=== PATIENT | female | born 1935 | race Caucasian/White ===

== ENCOUNTER 2018-11-28 17:45 | Emergency (ER) | payer MEDICARE, OTHER ==
[~2018-11-28] VITALS: Ht 167.6 cm; Wt 63.5 kg
[2018-11-28] MEDS ORDERED: CARB1TAB19 (18:06)
[2018-11-28] MEDS ORDERED: FLUO20TA28 (18:06)
[2018-11-28] MEDS ORDERED: AMLO-65 (18:06)
[2018-11-28] MEDS ORDERED: LAMO150T2 (18:06)
[2018-11-28 18:07] LABS: COLOR,URINE YELLOW
[2018-11-28 18:08] LABS: BILIRUBIN,URINE NEGATIVE (NEGATIVE); CLARITY,URINE CLEAR; GLUCOSE, URINE (UA) NEGATIVE (NEGATIVE); KETONES,URINE TRACE (NEGATIVE); LEUKOCYTE ESTERASE ,URINE NEGATIVE (NEGATIVE); NITRITE,URINE NEGATIVE (NEGATIVE); PROTEIN,URINE NEGATIVE (NEGATIVE); UROBILINOGEN,URINE 0.2 MG/DL (NORMAL)
[2018-11-28 18:11] LABS: BACTERIA,URINE TRACE /HPF; WBC,URINE 0-2 /HPF
[2018-11-28] MEDS ORDERED: NS IV 500 ML 500 ML IV SCH (18:15)
--- NOTE | 2018-11-28 18:19 | ED General ---
General Chief Complaint: Back Problems Stated Complaint: RT SIDE/BACK PAIN Source of Information: Patient History of Present Illness Date Seen by Provider: Nov 28, 2018 Time Seen by Provider: 18:00 Initial Comments Patient is an 82-year-old female who is brought to the emergency department today by her son for evaluation of abdominal pain. Patient states she has been having pain in the right lower quadrant intermittently over the last 2 weeks. She could not identify any aggravating or alleviating factors. Pain is not worse with food or eating. Pain was intermittent and moderate at times. She comes to the ER today because the pain became more constant over the last 2 days and more severe. She has continued to be able to tolerate food. No fever. Denies urinary symptoms. The patient does give a chronic history of constipation for which she does take a bowel regimen at home but states she continues to have difficulties frequently. Denies prior history of similar symptoms. Her only surgical history is positive for cholecystectomy 5 years earlier. Allergies and Home Medications Allergies Coded Allergies: Sulfa (Sulfonamide Antibiotics) (Unverified Adverse Reaction, Unknown, 11/28/18) Home Medications Docusate Sodium 100 Mg Tablet, 100 MG PO UD Take 1 capsule twice daily over the next week. After that, take one capsule either once daily or twice daily as needed for constipation symptoms. Prescribed by: HAN FLORES on 11/28/181944 Polyethylene Glycol 3350 17 Gm Powd.pack, 17 GM PO UD Take 1 or 2 doses daily over the next several days or until you have loose bowel movements. After that, take one dose daily as needed for constipation. Prescribed by: HAN FLORES on 11/28/181944 Patient Home Medication List Home Medication List Reviewed: Yes Review of Systems Review of Systems Constitutional: no symptoms reported EENTM: no symptoms reported Respiratory: no symptoms reported Cardiovascular: no symptoms reported Gastrointestinal: see HPI Genitourinary: no symptoms reported Musculoskeletal: no symptoms reported Skin: no symptoms reported Psychiatric/Neurological: No Symptoms Reported Hematologic/Lymphatic: No Symptoms Reported Physical Exam Vital Signs Vital Signs - First Documented 11/28/18 17:50 Temp 97.8 Pulse 86 Resp 18 B/P (MAP) 147/64 (91) Pulse Ox 93 O2 Delivery Room Air Capillary Refill : Height, Weight, BMI Height: '" Weight: lbs. oz. kg; BMI Method: General Appearance: No Apparent Distress, WD/WN HEENT: PERRL/EOMI, Normal ENT Inspection Neck: Normal Inspection Respiratory: Chest Non Tender, Lungs Clear Cardiovascular: Regular Rate, Rhythm, No Murmur Gastrointestinal: Normal Bowel Sounds, No Organomegaly, Soft, Other (subjectively tender to palpate in the right lower quadrant only but no guarding or rebound. Non-peritoneal abdominal exam) Back: Normal Inspection Extremity: Normal Capillary Refill Neurologic/Psychiatric: Alert, Oriented x3 Progress/Results/Core Measures Suspected Sepsis SIRS Temperature: Pulse: Respiratory Rate: Laboratory Tests 11/28/18 18:15: White Blood Count 6.7 Blood Pressure / Mean: Laboratory Tests 11/28/18 18:15: Creatinine 0.99, Platelet Count 235, Total Bilirubin 0.2 Results/Orders Lab Results Laboratory Tests Test 11/28/18 17:50 11/28/18 18:15 Range/Units Urine Color YELLOW Urine Clarity CLEAR Urine pH 6.0 5-9 Urine Specific [place] 1.020 1.016-1.022 Urine Protein NEGATIVE NEGATIVE Urine Glucose (UA) NEGATIVE NEGATIVE Urine Ketones TRACE H NEGATIVE Urine Nitrite NEGATIVE NEGATIVE Urine Bilirubin NEGATIVE NEGATIVE Urine Urobilinogen 0.2 NORMAL MG/DL Urine Leukocyte Esterase NEGATIVE NEGATIVE Urine RBC (Auto) NEGATIVE NEGATIVE Urine RBC NONE /HPF Urine WBC 0-2 /HPF Urine Squamous Epithelial Cells 2-5 /HPF Urine Crystals NONE /LPF Urine Bacteria TRACE /HPF Urine Casts NONE /LPF Urine Mucus NEGATIVE /LPF Urine Culture Indicated NO White Blood Count 6.7 4.3-11.0 10^3/uL Red Blood Count 3.70 L 4.35-5.85 10^6/uL Hemoglobin 12.3 11.5-16.0 G/DL Hematocrit 37 35-52 % Mean Corpuscular Volume 99 80-99 FL Mean Corpuscular Hemoglobin 33 25-34 PG Mean Corpuscular Hemoglobin Concent 34 32-36 G/DL Red Cell Distribution Width 13.6 10.0-14.5 % Platelet Count 235 130-400 10^3/uL Mean Platelet Volume 9.3 7.4-10.4 FL Neutrophils (%) (Auto) 47 42-75 % Lymphocytes (%) (Auto) 41 12-44 % Monocytes (%) (Auto) 8 0-12 % Eosinophils (%) (Auto) 3 0-10 % Basophils (%) (Auto) 1 0-10 % Neutrophils # (Auto) 3.1 1.8-7.8 X 10^3 Lymphocytes # (Auto) 2.7 1.0-4.0 X 10^3 Monocytes # (Auto) 0.6 0.0-1.0 X 10^3 Eosinophils # (Auto) 0.2 0.0-0.3 10^3/uL Basophils # (Auto) 0.0 0.0-0.1 10^3/uL Sodium Level 141 135-145 MMOL/L Potassium Level 4.1 3.6-5.0 MMOL/L Chloride Level 102 98-107 MMOL/L Carbon Dioxide Level 26 21-32 MMOL/L Anion Gap 13 5-14 MMOL/L Blood Urea Nitrogen 14 7-18 MG/DL Creatinine 0.99 0.60-1.30 MG/DL Estimat Glomerular Filtration Rate 54 BUN/Creatinine Ratio 14 Glucose Level 106 H 70-105 MG/DL Calcium Level 9.2 8.5-10.1 MG/DL Corrected Calcium 9.0 8.5-10.1 MG/DL Total Bilirubin 0.2 0.1-1.0 MG/DL Aspartate Amino Transf (AST/SGOT) 15 5-34 U/L Alanine Aminotransferase (ALT/SGPT) < 5 0-55 U/L Alkaline Phosphatase 95 40-136 U/L Troponin I < 0.30 <0.30 NG/ML Total Protein 7.0 6.4-8.2 GM/DL Albumin 4.3 3.2-4.5 GM/DL My Orders Orders - HAN FLORES DO Ua Culture If Indicated (11/28/18 17:57) Ed Iv/Invasive Line Start (11/28/18 18:15) Cbc With Automated Diff (11/28/18 18:15) Comprehensive Metabolic Panel (11/28/18 18:15) Ns Iv 500 Ml (Sodium Chloride 0.9%) (11/28/18 18:15) Troponin I (11/28/18 18:15) Ekg Tracing (11/28/18 18:15) Ct Abdomen/Pelvis W (11/28/18 18:15) Iohexol Injection (Omnipaque 350 Mg/Ml 1 (11/28/18 19:00) Received Contrast (Hold Metformin- Contr (11/28/18 19:00) Sodium Chloride Flush (Catheter Flush Sy (11/28/18 19:00) Ns (Ivpb) (Sodium Chloride 0.9% Ivpb Bag (11/28/18 19:00) Medications Given in ED Current Medications Medications Dose Ordered Sig/Ever Route Start Time Stop Time Status Last Admin Dose Admin Iohexol 100 ml ONCE ONCE IV 11/28/18 19:00 11/28/18 19:02 DC 11/28/18 19:08 100 ML Sodium Chloride 10 ml NEEDED PRN IV 11/28/18 19:00 11/28/18 19:08 10 ML Sodium Chloride 100 ml ONCE ONCE IV 11/28/18 19:00 11/28/18 19:02 DC 11/28/18 19:08 80 ML Vital Signs/I&O 11/28/18 17:50 Temp 97.8 Pulse 86 Resp 18 B/P (MAP) 147/64 (91) Pulse Ox 93 O2 Delivery Room Air Capillary Refill : Progress Note : Time: 18:15 Progress Note Patient is seen and examined. Urinalysis is completed and negative for acute signs of infection. Her abdominal exam as documented above. Overall, the patient is in no distress. We will do CT scan and basic labs. I did offer the patient pain medication but she declined the need at this time. 19:45: All results are reviewed and discussed with the patient. All of her questions are answered. CT scan does not reveal any acute findings but does raise some suspicion for constipation as the source of her pain. Based on her benign abdominal exam, there is no additional workup indicated this evening. Patient is discharged home. She is recommended to optimize her stool regimen. Follow-up with primary care doctor. Increase fluid intake and exercise regimens as well. ECG Initial ECG Impression Date: Nov 28, 2018 Initial ECG Impression Time: 18:25 Initial ECG Rate: 73 Initial ECG Rhythm: Normal Sinus Diagnostic Imaging Diagonstic Imaging: CT Departure Impression Primary Impression: Abdominal pain Additional Impression: Constipation Disposition: 01 HOME, SELF-CARE Condition: Stable Departure-Patient Inst. Referrals: GUZMAN CANTU MD (PCP/Family) Primary Care Physician Scripts Docusate Sodium (Docusate Sodium) 100 Mg Tablet 100 MG PO UD, #30 TAB 1 Refill Take 1 capsule twice daily over the next week. After that, take one capsule either once daily or twice daily as needed for constipation symptoms. Prov: HAN FLORES DO 11/28/18 Polyethylene Glycol 3350 (Miralax) 17 Gm Powd.pack 17 GM PO UD, #30 EACH Take 1 or 2 doses daily over the next several days or until you have loose bowel movements. After that, take one dose daily as needed for constipation. Prov: HAN FLORES DO 11/28/18 HAN FLORES DO Nov 28, 2018 18:19
[2018-11-28 18:29] LABS: HEMATOCRIT 37 % (35-52); HEMOGLOBIN 12.3 G/DL (11.5-16.0); MEAN CORPUSCULAR HEMOGLOBIN 33 PG (25-34); MEAN CORPUSCULAR HGB CONC 34 G/DL (32-36); MEAN CORPUSCULAR VOLUME 99 FL (80-99); MEAN PLATELET VOLUME 9.3 FL (7.4-10.4); PLATELET COUNT 235 10^3/uL (130-400); RED CELL DISTRIBUTION WIDTH 13.6 % (10.0-14.5); WHITE BLOOD COUNT 6.7 10^3/uL (4.3-11.0)
[2018-11-28 18:30] LABS: BASOPHILS % (AUTO) 1 % (0-10); EOSINOPHILS # (AUTO) 0.2 10^3/uL (0.0-0.3); EOSINOPHILS % (AUTO) 3 % (0-10); LYMPHOCYTES # (AUTO) 2.7 X 10^3 (1.0-4.0); LYMPHOCYTES % (AUTO) 41 % (12-44); MONOCYTES # (AUTO) 0.6 X 10^3 (0.0-1.0); MONOCYTES % (AUTO) 8 % (0-12); NEUTROPHILS # (AUTO) 3.1 X 10^3 (1.8-7.8); NEUTROPHILS % (AUTO) 47 % (42-75)
[2018-11-28 18:48] LABS: CARBON DIOXIDE 26 MMOL/L (21-32); CHLORIDE 102 MMOL/L (98-107); POTASSIUM 4.1 MMOL/L (3.6-5.0); SODIUM 141 MMOL/L (135-145)
[2018-11-28 18:49] LABS: ALANINE AMINOTRANSFERASE < 5 U/L (0-55); ALBUMIN 4.3 GM/DL (3.2-4.5); ALKALINE PHOSPHATASE 95 U/L (40-136); BILIRUBIN,TOTAL 0.2 MG/DL (0.1-1.0); BUN/CREATININE RATIO 14; CALCIUM 9.2 MG/DL (8.5-10.1); CREATININE SERUM 0.99 MG/DL (0.60-1.30); GFR ESTIMATED 54; GLUCOSE 106 MG/DL (70-105)
[2018-11-28] MEDS ORDERED: HOLD METFORMIN - RECEIVED CONTRAST 20 ML VIAL IV SCH (19:00)
[2018-11-28] MEDS ORDERED: CATHETER FLUSH 10 ML SYR IV PRN (19:00)
[2018-11-28] MEDS ORDERED: NS 100 ML (IVPB) BAG IV ONE (19:00)
[2018-11-28] MEDS ORDERED: IOHEXOL 350 MG/ML 100 ML (OMNIPAQUE 350) VIAL IV ONE (19:00)
--- NOTE | 2018-11-28 19:28 | Diagnostic Imaging Report ---
PROCEDURE: CT abdomen and pelvis with contrast. TECHNIQUE: Multiple contiguous axial images were obtained through the abdomen and pelvis after administration of intravenous contrast. Auto Exposure Controls were utilized during the CT exam to meet ALARA standards for radiation dose reduction. INDICATION: Right-sided abdominal pain COMPARISON: None FINDINGS: The lung bases are clear. The gallbladder is surgically absent. Solid organs are grossly unremarkable. There is mild atherosclerosis of the abdominal aorta without evidence of aneurysm. 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 No solid organ or bowel ischemia seen. There is no lymphadenopathy. No free air or free fluid identified. The uterus is surgically absent. The distal ureters and urinary bladder are grossly normal. There is no hernia. There is some mild constipation throughout the colon. There is no inflammation. The appendix is not demonstrated. Osseous structures are age-appropriate. No compression fracture seen. IMPRESSION: 1. Atherosclerosis of the abdominal aorta and origins of the celiac and SMA. No aneurysm identified. 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 2. Mild constipation throughout the colon without obstruction or ileus. 3. No inflammatory process identified. 4. Surgically absent gallbladder and uterus. Dictated by: Dictated on workstation # [id number]
[2018-11-28] MEDS ORDERED: POLY17PO6 PO (19:45)
[2018-11-28] MEDS ORDERED: DOCU100T2 PO (19:45)
[2018-11-28 19:50] VITALS: BP 173/90
== END 2018-11-28 19:50 | disposition home or self-care (01) ==
LOC: ER FS 17:47
DX: K59.00 Constipation, unspecified (principal); Z88.2 Allergy status to sulfonamides
CPT/HCPCS: 36415; 74177; 80053; 81000; 84484; 85025; 93005

== ENCOUNTER → 2018-12-08 | Outpatient (CLI) | payer MEDICARE ==
[~2018-12-08] MED LIST: AMLO-65; CARB1TAB19; DOCU100T2 PO; FLUO20TA28; LAMO150T2; POLY17PO6 PO
--- NOTE | 2018-12-08 19:59 | Diagnostic Imaging Report ---
INDICATION: Pain. FINDINGS: There is ulnar deviation of the proximal phalanx with respect to the metacarpals in the second through fifth fingers. 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 There is no fracture. Soft tissues are unremarkable. IMPRESSION: Degenerative changes as described. Dictated by: Dictated on workstation # [id number]
== END ==
LOC: RAD FS 13:41
PROVIDERS: ATTEND Nurse Practitioner
DX: M19.041 Primary osteoarthritis, right hand (principal)
CPT/HCPCS: 73140

== ENCOUNTER 2019-01-12 18:59 | Emergency (ER) | payer MEDICARE ==
[~2019-01-12] VITALS: Ht 167 cm; Wt 64.3 kg
--- NOTE | 2019-01-12 19:46 | ED Head Injury ---
General Chief Complaint: Laceration Stated Complaint: FALL; HEAD INJ Nursing Triage Note: PT WAS GETTING OUT OF CAR AROUND 1845 AND TRIPPED ON A CURB AND FELL. PT HIT RIGHT SIDE OF FACE AND PRESENTS WITH A SMALL LAC NEAR RIGHT EYEBROW. PT DENIES LOC AND IS ALERT/ORIENTED ON ARRIVAL. Source: patient Exam Limitations: no limitations History of Present Illness Date Seen by Provider: Jan 12, 2019 Time Seen by Provider: 19:41 Initial Comments Patient is an 83-year-old female who presents with accidental fall from standing. Patient was walking when she cut her foot on the curb causing her to fall striking the side of her face home ground. Patient denies loss of consciousness headache her feeling dazed. Patient has a 2 cm irregular laceration over the her right outer lateral rim. She is not on anticoagulation therapy. Bleeding is controlled there is no depression or ocular injury. Extraocular muscles are intact. Patient also has small contusion without depression over her right zygoma. No posterior neck pain or tenderness. Patient also complains of right elbow and right knee abrasion. No other acute symptoms or complaints. Occurred: just prior to arrival Severity: mild Location: frontal Method of Injury: fell Loss of Consciousness: no loss of consciousness Associated Systoms: Denies Symptoms Allergies and Home Medications Allergies Coded Allergies: Sulfa (Sulfonamide Antibiotics) (Unverified Adverse Reaction, Unknown, 11/28/18) Home Medications Docusate Sodium 100 Mg Tablet, 100 MG PO UD Take 1 capsule twice daily over the next week. After that, take one capsule either once daily or twice daily as needed for constipation symptoms. Prescribed by: HAN FLORES on 11/28/181944 Polyethylene Glycol 3350 17 Gm Powd.pack, 17 GM PO UD Take 1 or 2 doses daily over the next several days or until you have loose bowel movements. After that, take one dose daily as needed for constipation. Prescribed by: HAN FLORES on 11/28/181944 Patient Home Medication List Home Medication List Reviewed: Yes Review of Systems Review of Systems Constitutional: see HPI Eyes: See HPI Ears, Nose, Mouth, Throat: see HPI Respiratory: see HPI Cardiovascular: see HPI Gastrointestinal: see HPI Genitourinary: see HPI Musculoskeletal: see HPI Skin: see HPI Psychiatric/Neurological: See HPI Endocrine: See HPI Past Vkyvrha-Clxgyh-Bgjdey Hx Past Med/Social Hx: Reviewed Nursing Past Med/Soc Hx Patient Social History Type Used: Cigarettes 2nd Hand Smoke Exposure: Yes Recent Foreign Travel: No Contact w/Someone Who Travel: No Recent Infectious Disease Expo: No Recent Hopitalizations: No Physical Abuse: No Sexual Abuse: No Mistreated: No Immunizations Up To Date Tetanus Booster (TDap): Less than 5yrs Date of Pneumonia Vaccine: Jan 12, 2018 Date of Influenza Vaccine: Jan 12, 2018 Seasonal Allergies Seasonal Allergies: No Past Medical History Surgeries: Yes (R TKR) Gallbladder, Hysterectomy, Joint Replacement Respiratory: No Cardiac: Yes Hypertension Neurological: Yes Seizure Disorder Genitourinary: No Gastrointestinal: No Musculoskeletal: No Endocrine: No HEENT: No Cancer: No Psychosocial: Yes Depression Integumentary: No Blood Disorders: No Physical Exam Vital Signs Vital Signs - First Documented 01/12/19 19:00 Temp 37.4 Pulse 86 Resp 16 B/P (MAP) 136/69 (91) Pulse Ox 96 O2 Delivery Room Air Capillary Refill : Less Than 3 Seconds Height, Weight, BMI Height: 5'6.00" Weight: 140lbs. oz. 63.732416hy; 23.00 BMI Method:Stated General Appearance: WD/WN, no apparent distress HEENT: PERRL/EOMI, normal ENT inspection, pharynx normal, other (2 cm irregular full-thickness laceration over right outer lateral rim, bleeding controlled, no depression, small contusion over her right zygoma, no depression.) Neck: non-tender, full range of motion, supple, normal inspection Cardiovascular: normal peripheral pulses, regular rate, rhythm Respiratory: lungs clear Gastrointestinal: non tender, soft Extremities: normal range of motion, non-tender, other (no deformities, contusions, superficial abrasion to right posterior elbow and right knee.) Procedures/Interventions Other Closure Supply: Wound Adhesive Progress/Results/Core Measures Results/Orders Vital Signs/I&O 01/12/19 19:00 Temp 37.4 Pulse 86 Resp 16 B/P (MAP) 136/69 (91) Pulse Ox 96 O2 Delivery Room Air Blood Pressure Mean: 91 Departure Communication (Admissions) Wound cleansed and closed with wound adhesive. Tetanus is up-to-date. Typical closed head injury and wound care instructions provided. PCP follow up recommended. Return precautions reviewed. Impression Primary Impression: Head injury Additional Impressions: Facial laceration Abrasion Disposition: 01 HOME, SELF-CARE Condition: Stable/Unchanged Departure-Patient Inst. Referrals: GUZMAN CANTU MD (PCP/Family) Primary Care Physician Patient Instructions: Laceration Repair With Glue (DC), Minor Head Injury (DC) Add. Discharge Instructions: Please take Tylenol for pain and apply ice to affected areas for 20-30 minutes every 2-3 hours as needed. Follow up with PCP in 3-5 days for reevaluation. Return to ED if new or worsening symptoms. All discharge instructions reviewed with patient and/or family. Voiced understanding. TYSHAWN PENNINGTON DO Jan 12, 2019 19:46
[2019-01-12] MEDS ORDERED: ACETAMINOPHEN 500 MG TAB (TYLENOL) ONE (19:55)
[2019-01-12 19:59] VITALS: BP 125/59
[2019-01-12] MEDS ORDERED: ACETAMINOPHEN 500 MG TAB (TYLENOL) PO ONE (20:00)
== END 2019-01-12 20:00 | disposition home or self-care (01) ==
LOC: EDUNIT# 18:59 → ER FS 19:00
DX: S09.90XA Unspecified injury of head, initial encounter (principal); S01.81XA Laceration without foreign body of other part of head, initial encounter; S50.311A Abrasion of right elbow, initial encounter; S80.211A Abrasion, right knee, initial encounter; I10 Essential (primary) hypertension; F32.9 Major depressive disorder, single episode, unspecified; G40.909 Epilepsy, unspecified, not intractable, without status epilepticus; Z88.2 Allergy status to sulfonamides; Z77.22 Contact with and (suspected) exposure to environmental tobacco smoke (acute) (chronic); Z97.10 Presence of artificial limb (complete) (partial), unspecified; W01.198A Fall on same level from slipping, tripping and stumbling with subsequent striking against other object, initial encounter; Y92.480 Sidewalk as the place of occurrence of the external cause
CPT/HCPCS: 12011

== ENCOUNTER 2019-05-15 15:19 | Emergency (ER) | payer MEDICARE ==
[~2019-05-15] VITALS: Ht 167.7 cm; Wt 66.1 kg
[~2019-05-15 15:19] MED LIST changes: -LAMO150T2; +LAMO150T4
--- NOTE | 2019-05-15 15:52 | Diagnostic Imaging Report ---
EXAMINATION: Right hip unilateral 2 or 3 views (w/pelvis when done) HISTORY: Fall COMPARISON: None available. FINDINGS: Alignment is normal. No fracture is seen. Hip joint space is normal. IMPRESSION: 1. No fracture in the right hip. Dictated by: Dictated on workstation # [id number]
[2019-05-15] MEDS ORDERED: IBUPROFEN 800 MG (MOTRIN) TAB PO ONE (16:00)
[2019-05-15] MEDS ORDERED: ACETAMINOPHEN 500 MG TAB (TYLENOL) PO ONE (16:00)
--- NOTE | 2019-05-15 16:00 | ED General ---
General Chief Complaint: Trauma-Non Activation Stated Complaint: FALL - HIP PAIN Nursing Triage Note: Patient presents to the ED with c/o of right hip pain. Patient states that she fell on Friday night slipping on the ice and falling down 2 stairs. She is unsure of how she landed on the ground but denies any loss of conciousness. Nursing Sepsis Screen: No Definite Risk History of Present Illness Date Seen by Provider: May 15, 2019 Time Seen by Provider: 15:30 Initial Comments The patient is an 83-year-old female with a history of seizure disorder on Lamictal, Parkinson's disease on carbidopa/levodopa, anxiety on clonazepam, depression. She presents with concern for right low back discomfort radiating to the right hip with onset after a fall down 2 stairs outside 5 days ago. Patient states she slipped on the ice and this was witnessed by her [id number]-kjv. She fell back onto her head but was wearing a bulky winter garment with a fluid and the galarza was up, protecting her head. She denies any pain to her head. She denies any headache. She denies any loss of consciousness, nausea or vomiting or amnesia to events. She denies any neck pain. She denies pain anywhere aside from to her right low back and right hip as described. She has been able to ambulate with a narrow, steady gait on her injured hip and did so to walk into the emergency department today. She has taken no medicine for her discomfort aside from one hydrocodone earlier today. Patient is alert and oriented 4 and pleasantly and appropriately interactive and in absolutely no distress upon initial assessment in the emergency department. No loss of bowel or bladder control, saddle anesthesia, new lower extremity weakness, numbness, tingling, new urinary retention. Location Injury Occurred: Home Allergies and Home Medications Allergies Coded Allergies: Sulfa (Sulfonamide Antibiotics) (Unverified Adverse Reaction, Unknown, 11/28/18) Home Medications Docusate Sodium 100 Mg Tablet, 100 MG PO UD Take 1 capsule twice daily over the next week. After that, take one capsule either once daily or twice daily as needed for constipation symptoms. Prescribed by: HAN FLORES on 11/28/181944 Polyethylene Glycol 3350 17 Gm Powd.pack, 17 GM PO UD Take 1 or 2 doses daily over the next several days or until you have loose bowel movements. After that, take one dose daily as needed for constipation. Prescribed by: HAN FLORES on 11/28/181944 Patient Home Medication List Home Medication List Reviewed: Yes Review of Systems Review of Systems Constitutional: see HPI All Other Systems Reviewed Negative Unless Noted: Yes (Negative excepted noted.) Past Xjsufow-Rnldsk-Fgvdhe Hx Past Med/Social Hx: Reviewed Nursing Past Med/Soc Hx Patient Social History Alcohol Use: Regular Use Number of Drinks Today: 0 Alcohol Beverage of Choice: Beer Recreational Drug Use: No Smoking Status: Current Everyday Smoker Type Used: Cigarettes 2nd Hand Smoke Exposure: Yes Recent Foreign Travel: No Contact w/Someone Who Travel: No Recent Infectious Disease Expo: No Recent Hopitalizations: No Physical Abuse: No Sexual Abuse: No Mistreated: No Fear: No Immunizations Up To Date Tetanus Booster (TDap): Less than 5yrs Date of Pneumonia Vaccine: Jan 12, 2018 Date of Influenza Vaccine: Jan 12, 2018 Seasonal Allergies Seasonal Allergies: No Past Medical History Surgeries: Yes (R TKR, Trigger finger, ) Gallbladder, Hysterectomy, Joint Replacement Respiratory: No Cardiac: Yes Hypertension Neurological: Yes Parkinson's Disease, Seizure Disorder Genitourinary: No Gastrointestinal: No Musculoskeletal: Yes Arthritis Endocrine: No HEENT: No Cancer: No Psychosocial: Yes Anxiety, Depression Integumentary: No Blood Disorders: No Family Medical History Reviewed Nursing Family Hx Physical Exam Vital Signs Vital Signs - First Documented 05/15/19 15:20 Temp 36.3 Pulse 84 Resp 16 B/P (MAP) 129/68 (88) Pulse Ox 96 O2 Delivery Room Air Capillary Refill : Less Than 3 Seconds Height, Weight, BMI Height: 5'6.00" Weight: 140lbs. oz. 63.025758ui; 23.00 BMI Method:Stated General Appearance: No Apparent Distress Comments This is an elderly female appearing nontoxic and in no acute distress. Head is normocephalic and atraumatic. Neck is supple and nontender. Oropharynx is moist. Lungs are clear to auscultation at all stations. There is normal S1 and S2 without rubs or gallops and capillary refill is appropriate, less than 2 seconds globally. Abdomen is soft, nontender and nondistended. Skin is warm and dry without cyanosis, clubbing or edema. Psychiatrically, the patient demonstrates appropriate mood and affect and is alert. Neurologically, patient moves all extremities equally, is alert and oriented 4 and ambulates with a narrow, steady gait in the emergency department. No lateralizing deficits are noted. Evaluation of the back and the right lower extremity are remarkable for mild low lumbar level right-sided paraspinal tenderness without erythema, warmth or swelling. There is no tenderness to palpation over the greater trochanter of the right hip and the RLE is entirely without erythema, warmth or swelling and without any significant limitation and active or passive ranging of any joint. Straight leg raise is positive on the right. No pain with ranging at the right knee or right ankle or right foot. The right lower extremity is neurovascularly intact distally with strength 5 out of 5, sensation intact to light touch in all nerve distributions, DP and PT pulses 2+, capillary refill less than 2 seconds, foot warm and well-perfused. Progress/Results/Core Measures Suspected Sepsis Recent Fever Within 48 Hours: No Infection Criteria Present: None New/Unexplained Altered Menta: No Sepsis Screen: No Definite Risk SIRS Temperature: Pulse: 84 Respiratory Rate: 16 Blood Pressure 129 /68 Mean: 88 Results/Orders My Orders Orders - KERVIN VICENTE MD Hip 2-3 View Right (05/15/19 15:36) Lumbar Spine 2 Or 3 View (05/15/19 15:49) Ibuprofen Tablet (Motrin Tablet) (05/15/19 16:00) Acetaminophen Tablet (Tylenol Tablet) (05/15/19 16:00) Medications Given in ED Current Medications Medications Dose Ordered Sig/Ever Route Start Time Stop Time Status Last Admin Dose Admin Acetaminophen 1,000 mg ONCE ONCE PO 05/15/19 16:00 05/15/19 16:01 DC 05/15/19 16:00 1,000 MG Ibuprofen 800 mg ONCE ONCE PO 05/15/19 16:00 05/15/19 16:01 DC 05/15/19 16:00 800 MG Vital Signs/I&O 05/15/19 15:20 Temp 36.3 Pulse 84 Resp 16 B/P (MAP) 129/68 (88) Pulse Ox 96 O2 Delivery Room Air Capillary Refill : Less Than 3 Seconds Blood Pressure Mean: 88 Progress Note : Time: 16:00 Progress Note Vital signs and clinical examination reassuring. Well-appearing 83-year-old female not on blood thinners who ambulates in with a narrow, steady gait for evaluation of persistent right low back and right hip discomfort after a fall d own 2 steps 5 days ago. Examination raises suspicion for low lumbar radicular discomfort. Has not been taking anti-inflammatories. We will give ibuprofen and Tylenol and obtain plain films of the right low back and right hip and will then reevaluate. If workup is reassuring, plan will be for discharge home with a course of anti-inflammatory medication to follow up very closely with primary care immediately after the weekend. Patient and her peaeqtbp-ny-phh understand and agree with this plan of care. Update 1620: Plain films of lumbar spine and right hip unremarkable and reassuring evidence of acute fracture or other acute process. Discomfort is controlled and, as above, the patient relates with a narrow, steady gait in the emergency department. Patient and family counseled that next step in care is discharge with medications for symptomatic management including anti- inflammatories we will prescribe ibuprofen and a Medrol Dosepak as well as low-dose cyclobenzaprine and Lidoderm patches. Patient is counseled to follow up with primary care in the next 2-4 days and to return to the emergency department right away with worsening symptoms or with other new concerns. They understand and agree with this plan of care. All questions are answered. Departure Impression Primary Impression: Right lumbosacral radiculopathy Additional Impression: Fall down stairs Qualified Codes: W10.8XXA - Fall (on) (from) other stairs and steps, initial encounter Disposition: 01 HOME, SELF-CARE Condition: Improved Departure-Patient Inst. Referrals: GUZMAN CANTU MD (PCP/Family) Primary Care Physician Patient Instructions: Low Back Pain in Adults, Hip Pain Add. Discharge Instructions: Follow-up with your primary care physician in the next 2-4 days in the office. Call for an appointment. Use the medications as instructed for control of your symptoms. Return to the emergency department right away with uncontrolled discomfort, worsening symptoms or with any other new symptoms of concern. Scripts [lidoderm 5% patch] No Conflict Check 1 PATCH TD DAILY for Pain, #14 PATCH Apply 1 patch to skin every [address] for 12 hours, then remove and wait 12 hours before applying a new patch. Prov: KERVIN VICENTE MD 05/15/19 Cyclobenzaprine HCl (Cyclobenzaprine HCl) 10 Mg Tablet 5 MG PO Q8H PRN for SPASMS, #13 TAB 0 Refills Prov: KERVIN VICENTE MD 05/15/19 Methylprednisolone (Medrol) 4 Mg Tab 4 MG PO UD for 6 Days, #21 TAB as directed per dose pack Prov: KERVIN VICENTE MD 05/15/19 Ibuprofen (Ibuprofen) 600 Mg Tablet 600 MG PO Q6H PRN for PAIN-MILD, #30 TAB Prov: KERVIN VICENTE MD 05/15/19 KERVIN VICENTE MD May 15, 2019 15:59
--- NOTE | 2019-05-15 16:18 | Diagnostic Imaging Report ---
INDICATION: Fall. TIME OF EXAM: 3:55 p.m. EXAMINATION: Three views of the lumbar spine were obtained. FINDINGS: Curvature is normal. There is grade 1 spondylolisthesis of L4 on L5. Vertebral body heights are maintained. No acute compression fracture is detected. There is multilevel degenerative disc disease with variable disc space narrowing and marginal spurring. Marked multilevel facet arthropathy is noted. Aorta is heavily calcified. IMPRESSION: Severe lumbar spondylosis and facet arthropathy. No acute bony abnormality is detected. Dictated by: Dictated on workstation # [id number]
[2019-05-15] MEDS ORDERED: IBUP-1773 PO (16:33)
[2019-05-15] MEDS ORDERED: NF-METHYLP PO (16:33)
[2019-05-15] MEDS ORDERED: CYCL10TA9 PO (16:33)
[2019-05-15] MEDS ORDERED: lidoderm 5% patch TD (16:33)
[2019-05-15 16:46] VITALS: BP 132/67
== END 2019-05-15 16:45 | disposition home or self-care (01) ==
LOC: EDUNIT# 15:19 → ER FS 15:20
DX: M54.17 Radiculopathy, lumbosacral region (principal); G40.909 Epilepsy, unspecified, not intractable, without status epilepticus; G20 Parkinson's disease; F41.9 Anxiety disorder, unspecified; F32.9 Major depressive disorder, single episode, unspecified; F17.210 Nicotine dependence, cigarettes, uncomplicated; Z88.2 Allergy status to sulfonamides; Z96.651 Presence of right artificial knee joint; W10.8XXA Fall (on) (from) other stairs and steps, initial encounter
CPT/HCPCS: 72100; 73502

== ENCOUNTER → 2019-05-25 | Outpatient (CLI) | payer MEDICARE ==
[~2019-05-25] MED LIST changes: +CYCL10TA9 PO; +IBUP-1773 PO; +NF-METHYLP PO; +lidoderm 5% patch TD
--- NOTE | 2019-05-25 12:31 | Diagnostic Imaging Report ---
INDICATION: Pain 3 views were obtained. FINDINGS: There are post surgical changes of a right knee arthroplasty. There is no loosening. There is no fracture or dislocation. Soft tissues are unremarkable. IMPRESSION: Stable right knee arthroplasty. Dictated by: Dictated on workstation # [id number]
--- NOTE | 2019-05-25 12:32 | Diagnostic Imaging Report ---
INDICATION: Back pain. FINDINGS: The bones are osteopenic. There is multilevel degenerative disc disease and lower lumbar hypertrophic degenerative facet disease. There is no spondylolysis or spondylolisthesis. No fractures are identified. IMPRESSION: Osteopenia and evwjqrxt-mo-ikpyag diffuse lumbar spondylosis as described. Dictated by: Dictated on workstation # [id number]
--- NOTE | 2019-05-25 12:32 | Diagnostic Imaging Report ---
INDICATION: Fall. 2 views were obtained. FINDINGS: The alignment is normal. There is no fracture or dislocation. There are mild degenerative changes. Soft tissues are unremarkable. IMPRESSION: Mild degenerative changes otherwise unremarkable. Dictated by: Dictated on workstation # [id number]
== END ==
LOC: RAD FS 11:22
PROVIDERS: ATTEND Family Medicine
DX: M54.41 Lumbago with sciatica, right side (principal); M85.88 Other specified disorders of bone density and structure, other site; M47.816 Spondylosis without myelopathy or radiculopathy, lumbar region; M16.11 Unilateral primary osteoarthritis, right hip; M25.561 Pain in right knee; Z96.651 Presence of right artificial knee joint
CPT/HCPCS: 72100; 73502; 73562

== ENCOUNTER 2020-06-04 12:43 | Emergency (ER) | payer MEDICARE ==
[~2020-06-04] VITALS: Ht 167.7 cm; Wt 64.4 kg
[2020-06-04] MEDS ORDERED: oxyCODONE/APAP 5/325MG (PERCOCET 5) TABLET PO ONE (13:15)
--- NOTE | 2020-06-04 14:04 | Diagnostic Imaging Report ---
EXAMINATION: Left rib radiographs, 4 views. COMPARISON: None. HISTORY: 84-year-old female, fall. Left-sided chest and rib pain. FINDINGS: There is no identified left-sided rib fracture. There is no identified pneumothorax or pleural effusion. There are moderate left glenohumeral arthritic changes. There are right upper quadrant surgical clips. There are degenerative changes of the spine. IMPRESSION: 1. No identified left-sided rib fracture or visualized acute cardiopulmonary abnormality. Dictated by: Dictated on workstation # [id number]
--- NOTE | 2020-06-04 14:51 | ED Lower Extremity ---
General Chief Complaint: Trauma-Non Activation Stated Complaint: FALL; LT RIBS INJ Nursing Triage Note: left flank/rib pain, tailbone pain Nursing Sepsis Screen: No Definite Risk Source: patient History of Present Illness Date Seen by Provider: Jun 04, 2020 Time Seen by Provider: 12:30 Initial Comments Patient is an 84-year-old female who presents with left lower rib pain after walking into a countertop last evening. Pain is worse with palpation and movement. Patient denies abdominal pain, chest wall pain, shortness of breath. No nausea or vomiting. No midline back pain. Patient is not on anticoagulation therapy. Patient was evaluated at [facility] prior to ED arrival and referred to the ED for further evaluation. Onset: just prior to arrival Severity: moderate Method of Injury: direct blow Modifying Factors: Improves With Movement, Improves With Pain Medication Allergies and Home Medications Allergies Coded Allergies: Sulfa (Sulfonamide Antibiotics) (Unverified Adverse Reaction, Unknown, 11/28/18) Home Medications Cyclobenzaprine HCl 10 Mg Tablet, 5 MG PO Q8H PRN for SPASMS Prescribed by: KERVIN VICENTE on 05/15/191632 Docusate Sodium 100 Mg Tablet, 100 MG PO UD Take 1 capsule twice daily over the next week. After that, take one capsule either once daily or twice daily as needed for constipation symptoms. Prescribed by: HAN FLORES on 11/28/181944 Ibuprofen 600 Mg Tablet, 600 MG PO Q6H PRN for PAIN-MILD Prescribed by: KERVIN VICENTE on 05/15/19 163 Methylprednisolone 4 Mg Tab, 4 MG PO UD as directed per dose pack Prescribed by: KERVIN VICENTE on 05/15/19 163 Polyethylene Glycol 3350 17 Gm Powd.pack, 17 GM PO UD Take 1 or 2 doses daily over the next several days or until you have loose bowel movements. After that, take one dose daily as needed for constipation. Prescribed by: HAN FLORES on 11/28/181944 [lidoderm 5% patch] , 1 PATCH TD DAILY Apply 1 patch to skin every [address] for 12 hours, then remove and wait 12 hours before applying a new patch. Prescribed by: KERVIN VICENTE on 05/15/191632 Patient Home Medication List Home Medication List Reviewed: Yes Review of Systems Constitutional: see HPI EENTM: see HPI Respiratory: see HPI Cardiovascular: see HPI Gastrointestinal: see HPI Genitourinary: see HPI Musculoskeletal: see HPI Skin: see HPI Psychiatric/Neurological: See HPI All Other Systems Reviewed Negative Unless Noted: Yes Past Ccjquav-Hqwtsj-Ahezjg Hx Past Med/Social Hx: Reviewed Nursing Past Med/Soc Hx Patient Social History Alcohol Use: Regular Use Alcohol Beverage of Choice: Beer Smoking Status: Current Everyday Smoker Type Used: Cigarettes 2nd Hand Smoke Exposure: No Recent Infectious Disease Expo: No Recent Hopitalizations: No Immunizations Up To Date Tetanus Booster (TDap): Less than 5yrs Date of Pneumonia Vaccine: Jan 12, 2018 Date of Influenza Vaccine: Jan 12, 2018 Seasonal Allergies Seasonal Allergies: No Past Medical History Surgeries: Yes (R TKR, Trigger finger, ) Gallbladder, Hysterectomy, Joint Replacement Respiratory: No Cardiac: Yes Hypertension Neurological: Yes Parkinson's Disease, Seizure Disorder Genitourinary: No Gastrointestinal: No Musculoskeletal: Yes Arthritis Endocrine: No HEENT: No Cancer: No Psychosocial: Yes Anxiety, Depression Integumentary: No Blood Disorders: No Physical Exam Vital Signs Vital Signs - First Documented 06/04/20 12:46 Temp 36.7 Pulse 92 Resp 20 B/P (MAP) 133/65 (87) Pulse Ox 97 O2 Delivery Room Air Capillary Refill : Less Than 3 Seconds Height, Weight, BMI Height: 5'6.00" Weight: 140lbs. oz. 63.169402wl; 22.00 BMI Method:Stated General Appearance: no apparent distress HEENT: PERRL/EOMI, normal ENT inspection Neck: non-tender, full range of motion, supple Cardiovascular: regular rate, rhythm Respiratory: lungs clear Gastrointestinal: non tender, soft Back: No vertebral tenderness (Lower left-sided. Vertebral thoracic rib tenderness to palpation. ); other Progress/Results/Core Measures Results/Orders My Orders Orders - TYSHAWN PENNINGTON DO Ribs 2-3 View Left (06/04/20 13:15) Oxycodone/Apap 5/325mg Tablet (Percocet (06/04/20 13:15) Medications Given in ED Current Medications Medications Dose Ordered Sig/Ever Route Start Time Stop Time Status Last Admin Dose Admin Oxycodone/ Acetaminophen 1 tab ONCE ONCE PO 06/04/20 13:15 06/04/20 13:17 DC 06/04/20 13:21 1 TAB Vital Signs/I&O 06/04/20 12:46 Temp 36.7 Pulse 92 Resp 20 B/P (MAP) 133/65 (87) Pulse Ox 97 O2 Delivery Room Air Blood Pressure Mean: 87 Departure Communication (Admissions) Left-sided rib series: No obvious displaced fracture per radiology report Posterior back pain no midline tenderness, no obvious displaced rib fracture on imaging studies. Symptoms improved with treatment. Recommend supportive care PCP follow-up. Return precautions reviewed. Patient verbalizes understanding agreement discharge instructions prior to departure. Pseudomonal Risk: No known risk Impression Primary Impression: Rib contusion Disposition: HOME, SELF-CARE Condition: Stable Departure-Patient Inst. Decision time for Depature: 14:54 Referrals: GUZMAN CANTU MD (PCP/Family) Primary Care Physician Patient Instructions: Blunt Chest Trauma Add. Discharge Instructions: Please take ibuprofen for pain and oxycodone as needed for additional relief. Avoid strenuous physical activity bending and heavy lifting. Follow-up with your PCP in 7 to 10 days if symptoms persist. Return to the ED if new or worsening symptoms. All discharge instructions reviewed with patient and/or family. Voiced understanding. Scripts Oxycodone HCl/Acetaminophen (Percocet 5-325 mg Tablet) 1 Each Tablet 1 TAB PO Q4H for PAIN-MODERATE MDD 6 TABS for 7 Days, #14 TAB Prov: TYSHAWN PENNINGTON DO 06/04/20 TYSHAWN PENNINGTON DO Jun 04, 2020 14:51
[2020-06-04] MEDS ORDERED: OXYC1TAB87 PO (14:55)
[2020-06-04 15:06] VITALS: BP 130/65
== END 2020-06-04 15:06 | disposition home or self-care (01) ==
LOC: EDUNIT# 12:43 → ER FS 12:45
DX: S20.222A Contusion of left back wall of thorax, initial encounter (principal); F17.210 Nicotine dependence, cigarettes, uncomplicated; Z88.2 Allergy status to sulfonamides; Z79.52 Long term (current) use of systemic steroids; W22.09XA Striking against other stationary object, initial encounter
CPT/HCPCS: 71100

== ENCOUNTER 2021-01-23 17:43 | Emergency (ER) | payer MEDICARE ==
[~2021-01-23 17:43] MED LIST changes: +OXYC1TAB87 PO
--- OUTSIDE RECORDS SUMMARY | 2021-01-23 17:47 | XMS REPORT | Clinical Summary ---
Author Author [facility] Organization [facility] Address Unknown Phone Unavailable Care Team Providers Care Call Center Dispatcher Name Role Phone Kristyn Moran MD PCP Allergies Comments Active Allergy Reactions Severity Noted Date Sulfamethoxazole-Trimetho 08/12/2013 prim Sulfa (Sulfonamide 12/09/2013 Antibiotics) Medications End Date Status Medication Sig Dispensed Refills Start Date Active clonazePAM (KLONOPIN) 1 Take 0.5 mg 0 MG tablet by mouth daily as needed for anxiety. Active CHOLECALCIFEROL, VITAMIN Take 1 0 D3, (VITAMIN D3 ORAL) capsule by mouth daily. Active b complex vitamins Take 1 0 capsule capsule by mouth daily. Active folic acid (FOLVITE) 800 Take 400 mcg 0 MCG tablet by mouth daily. Active lamoTRIgine (LAMICTAL) TAKE ONE 60 tablet 5 150 MG tablet TABLET BY 6 MOUTH TWICE DAILY Active aspirin 81 MG chewable Chew 81 mg 0 tablet daily. Active FLUoxetine (PROZAC) 20 mg Take 20 mg by 0 capsule mouth daily. Active carbidopa-levodopa Take 1 tablet 0 (SINEMET) 25-100 mg per by mouth 3 tablet (three) times a day. Active ondansetron (ZOFRAN ODT) Take 1 tablet 10 tablet 0 4 MG disintegrating (4 mg total) 8 tablet by mouth every 8 (eight) hours as needed for nausea. 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 Hyperphosphatemia 08/14/2013 Normocytic anemia 08/14/2013 HTN (hypertension) 08/13/2013 Seizure disorder 08/13/2013 Depression 08/13/2013 Anxiety 08/13/2013 Tobacco abuse 08/13/2013 Gait instability 08/13/2013 Social History Date Tobacco Use Types Packs/Day Years Used Quit: 01/27/2010 Current Some Day Smoker Cigarettes Smokeless Tobacco: Never Used Tobacco Cessation: Ready to Quit: No; Co unseling Given: Yes Comments Alcohol Use Standard Drinks/Week weekly Yes 0 (1 standard drink = 0.6 o z pure alcohol) Sex Assigned at Date Recorded Not on file Last Filed Vital Signs Reading Time Taken Comments Vital Sign 164/72 04/18/2017 1:25 PM FACE PAINTER Blood Pressure 102 04/18/2017 1:25 PM FACE PAINTER Pulse 36.3 C (97.3 F) 04/18/2017 10:57 AM FACE PAINTER Temperature 16 04/18/2017 1:25 PM FACE PAINTER Respiratory Rate 93% 04/18/2017 1:25 PM FACE PAINTER Oxygen Saturation - - Inhaled Oxygen Concentration 69.8 kg (153 lb 14.1 oz) 04/18/2017 10:57 AM FACE PAINTER Weight 167.6 cm (5' 6") 04/18/2017 10:57 AM FACE PAINTER Height 24.84 04/18/2017 10:57 AM FACE PAINTER Body Mass Index Plan of Treatment Health Maintenance Due Date Last Done Comments Td/Tdap# 1936 Tobacco Cessation 1936 Counseling # Zoster Vaccine# (1 of 2) 1986 Fall Risk Assessment # 2001 Osteoporosis Screening 2001 Pneumococcal Vaccine: 65+ 2001 Years (1 of 1 - PPSV23) Influenza Vaccine (#1) 2021 Results Not on filefrom Last 3 Months Advance Directives For more information, please contact: [phone] 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
--- OUTSIDE RECORDS SUMMARY | 2021-01-23 17:47 | XMS REPORT | Clinical Summary ---
Author Author [facility] Organization [facility] Address Unknown Phone Unavailable Care Team Providers Care Accounting Technician Name Role Phone Kristyn Moran MD PCP Source Comments Some departments are not documenting in the electronic medical record. If you d o not see the information that you expected, contact Release of Information in [facility] [employer] Information Management department at [phone] for further assistan ce in locating additional records.[facility] Allergies Comments Active Allergy Reactions Severity Noted Date Sulfa (Sulfonamide NAUSEA AND Low 11/28/2016 Antibiotics) VOMITING Medications End Date Status Medication Sig Dispensed Refills Start Date Active alendronate (FOSAMAX) 70 Take 70 mg by 0 mg tablet mouth every 7 days. Take at least 30 minutes before breakfast with plain water. Do not lie down for 30 minutes. Active fluoxetine (PROZAC) 20 mg Take 20 mg by 0 capsule mouth daily. Active FOLIC ACID PO Take 800 mcg 0 by mouth daily. Active ERGOCALCIFEROL (VITAMIN Take 3,000 mg 0 D2) (VITAMIN D PO) by mouth daily. Active clonazePAM (KLONOPIN) 1 Take 1 mg by 0 mg tablet mouth as Needed. Active lamoTRIgine XR(+) Take 1 tablet 30 tablet 6 (LAMICTAL XR) 300 mg by mouth 7 tablet daily. Additional Information Patient taking differently: 150 mg Oral TWICE DAILY, Reported on 03/24/2017 Active aspirin EC 81 mg tablet Take 81 mg by 0 mouth daily. Take with food. Active amLODIPine (NORVASC) 5 mg Take 5 mg by 0 tablet mouth daily. Active ondansetron (ZOFRAN ODT) 2 mg. 0 04/20 4 mg rapid dissolve 8 tablet Active carbidopa/levodopa TAKE 1 TABLET 270 tablet 0 07/18 (SINEMET) 25/100 mg BY MOUTH 0 tabletIndications: THREE TIMES Tremor, Gait difficulty DAILY Active Problems Problem Noted Date Parkinsonism 04/21/2018 Fall 04/21/2018 Tremor 11/28/2016 Last Assessment & Plan: Formatting of this note might be differ ent from the original. Patient with both resting and postural tremor. She has bradykinesia in the right hand but no cogwheel rigidity. Ga it has normal arm swing but step length is slightly reduced. I suspect s he has early Parkinsonism with overlying medication related tremor. Will refer to movement disorders for fu rther evaluation. 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 Last seizure in 2012 when medication wa s tapered. Will change to extended release Lamotrigine to see if better to lerated. Suggest taking with dinner. Abnormal gait 11/28/2016 Last Assessment & Plan: Formatting of this note might be differ ent from the original. Refer to physical therapy for evaluatio n and treatment. Surgical History Surgery Date Site/Laterality Comments HYSTERECTOMY CHOLECYSTECTOMY KNEE REPLACEMENT WRIST FRACTURE [place] Medical History Medical History Date Comments Osteoporosis Anxiety Family History Medical History Relation Name Comments Seizures Neg Hx Social History Date Tobacco Use Types Packs/Day Years Used Current Every Day Smoker Smokeless Tobacco: Current User Comments: smoke 12 ciggs a day Comments Alcohol Use Standard Drinks/Week every once in a while Yes 2 (1 standard drink = 0.6 o z pure alcohol) Alcohol Habits Answer Date Recorded How often do you have a drink containing alcohol? No t asked How many drinks containing alcohol do you have on No t asked a typical day when you are drinking? How often do you have six or more drinks on one Not asked occasion? Comment: every once in a while 11/28/2016 Sex Assigned at Date Recorded Not on file Last Filed Vital Signs Reading Time Taken Comments Vital Sign 145/81 10/20/2018 11:44 AM CDT Blood Pressure 70 10/20/2018 11:44 AM CDT Pulse 36.8 C (98.2 F) 11/28/2016 1:23 PM CDT Temperature 14 10/20/2018 11:44 AM CDT Respiratory Rate - - Oxygen Saturation - - Inhaled Oxygen Concentration 64.3 kg (141 lb 12.8 oz) 10/20/2018 11:44 AM CDT Weight 165.1 cm (5' 5") 10/20/2018 11:44 AM CDT Height 23.6 10/20/2018 11:44 AM CDT Body Mass Index Plan of Treatment Health Maintenance Due Date Last Done Comments MEDICARE ANNUAL WELLNESS 1935 VISIT PNEUMONIA (PPSV23) 1942 VACCINE (1 of 2 - PPSV23) DTAP/TDAP VACCINES (1 - 1954 Tdap) PHYSICAL (COMPREHENSIVE) 1954 EXAM SHINGLES RECOMBINANT 1986 VACCINE (1 of 2) OSTEOPOROSIS 2001 SCREENING/MONITORING INFLUENZA VACCINE 11/12/2020 Results Not on filefrom Last 3 Months Insurance Type Payer Benefit Subscriber ID Effective Phone Address Plan / Dates Group Medicare AETNA MEDICARE AETNA [id number] 2019-P MEDICARE resent PPO [id number] Advance Directives Patient Doctor Podiatric Medicine Explanation Type Date Recorded Advance Directive/DPOA
--- NOTE | 2021-01-23 18:12 | ED Lower Extremity ---
General Chief Complaint: Trauma-Non Activation Stated Complaint: FALL,HIT HEAD History of Present Illness Date Seen by Provider: Jan 23, 2021 Time Seen by Provider: 18:08 Initial Comments 85-year-old female presents with a laceration to her head just prior to arrival. Patient was at home and states she was trying to get out of a chair that would not move on her carpet and she fell to the side hitting a piece of furniture. She has a cut to the right side of her head without any loss of consciousness, f eeling dazed or confused or having headache. She is not on any blood thinners, denies neck pain, back pain or extremity pain or any other concerns. Allergies and Home Medications Allergies Coded Allergies: Sulfa (Sulfonamide Antibiotics) (Unverified Adverse Reaction, Unknown, 11/28/18) Patient Home Medication List Home Medication List Reviewed: Yes Amlodipine Besylate/Benazepril (Amlodipine-Benazepril 5-10 mg) 1 Each Capsule, (Reported) Entered as Reported by: ANGIE YOST on 11/28/18 180 Carbidopa/Levodopa (Carbidopa-Levodopa 25-100 Tab) 1 Each Tablet, (Reported) Entered as Reported by: ANGIE YOST on 11/28/181805 Cyclobenzaprine HCl (Cyclobenzaprine HCl) 10 Mg Tablet, 5 MG PO Q8H PRN for SPASMS Prescribed by: KERVIN VICENTE on 05/15/19 163 Docusate Sodium (Docusate Sodium) 100 Mg Tablet, 100 MG PO UD Prescribed by: HAN FLORES on 11/28/181944 Fluoxetine HCl (Fluoxetine HCl) 20 Mg Tablet, (Reported) Entered as Reported by: ANGIE YOST on 11/28/181805 Ibuprofen (Ibuprofen) 600 Mg Tablet, 600 MG PO Q6H PRN for PAIN-MILD Prescribed by: KERVIN VICENTE on 05/15/19 163 Lamotrigine (Lamotrigine) 150 Mg Tablet, (Reported) Entered as Reported by: ANGIE YOST on 11/28/181805 Methylprednisolone (Medrol Dose pack) 4 Mg Tab, 4 MG PO UD Prescribed by: KERVIN VICENTE on 05/15/19 1633 Oxycodone HCl/Acetaminophen (Percocet 5-325 mg Tablet) 1 Each Tablet, 1 TAB PO Q4H Prescribed by: TYSHAWN PENNINGTON on 06/04/20 1455 Polyethylene Glycol 3350 (Miralax) 17 Gm Powd.pack, 17 GM PO UD Prescribed by: HAN FLORES on 11/28/18 194 [lidoderm 5% patch] , 1 PATCH TD DAILY Prescribed by: KERVIN VICENTE on 05/15/19 1633 Review of Systems Constitutional: No dizziness, No fever, No malaise, No weakness EENTM: see HPI Respiratory: no symptoms reported Cardiovascular: no symptoms reported Gastrointestinal: No nausea, No vomiting Musculoskeletal: see HPI; No back pain, No joint pain, No neck pain Skin: other (lac to scalp) Psychiatric/Neurological: Denies Headache, Denies Numbness, Denies Paresthesia, Denies Weakness Past Ppurfji-Hcdwmr-Ievzuu Hx Patient Social History Tobacco Use?: No Immunizations Up To Date Tetanus Booster (TDap): Less than 5yrs Seasonal Allergies Seasonal Allergies: No Past Medical History Surgeries: Yes (R TKR, Trigger finger, ) Gallbladder, Hysterectomy, Joint Replacement Respiratory: No Cardiac: Yes Hypertension Neurological: Yes Parkinson's Disease, Seizure Disorder Genitourinary: No Gastrointestinal: No Musculoskeletal: Yes Arthritis Endocrine: No HEENT: No Cancer: No Psychosocial: Yes Anxiety, Depression Integumentary: No Blood Disorders: No Physical Exam Vital Signs Capillary Refill : Height, Weight, BMI Height: 5'6.00" Weight: 140lbs. oz. 63.356106zg; 22.00 BMI Method:Stated General Appearance: WD/WN, no apparent distress HEENT: PERRL/EOMI, normal ENT inspection Neck: non-tender, supple Neurologic/Psychiatric: no motor/sensory deficits, alert, normal mood/affect, oriented x 3 Skin: normal color, warm/dry, other (2cm linear laceration R parietal) Procedures/Interventions Wound Location: Scalp Wound Length (cm): 2 Wound's Depth, Shape: linear Wound Explored: clean Betadine Prep?: No (soap) Staple Repair: Stapler 35W (3 oscar), Patient Given Remover Departure Impression Primary Impression: Laceration of scalp without complication Qualified Codes: S01.01XA - Laceration without foreign body of scalp, initial encounter Disposition: HOME, SELF-CARE Condition: Improved Departure-Patient Inst. Decision time for Depature: 18:11 Referrals: GUZMAN CANTU MD (PCP/Family) Primary Care Physician Patient Instructions: Laceration Repair With Oscar (DC), Minor Head Injury (DC) Add. Discharge Instructions: follow up with your PCP for any concerns of wound infection. Remove your oscar in 7 to 10 days All discharge instructions reviewed with patient and/or family. Voiced understanding. FRANDY SAEZ DO Jan 23, 2021 18:12
[2021-01-24 18:25] VITALS: BP 134/70
== END 2021-01-23 18:25 | disposition home or self-care (01) ==
LOC: EDUNIT# 17:43 → ER FS 17:44
DX: S01.01XA Laceration without foreign body of scalp, initial encounter (principal); I10 Essential (primary) hypertension; G20 Parkinson's disease; F41.9 Anxiety disorder, unspecified; F32.9 Major depressive disorder, single episode, unspecified; G40.909 Epilepsy, unspecified, not intractable, without status epilepticus; Z79.899 Other long term (current) drug therapy; W22.8XXA Striking against or struck by other objects, initial encounter

== ENCOUNTER 2021-03-12 15:28 | Emergency (ER) | payer MEDICARE ==
[~2021-03-12 15:28] MED LIST changes: +CYCL10TA25 PO; -CYCL10TA9 PO
--- NOTE | 2021-03-12 15:44 | ED Fall/Injury ---
General Stated Complaint: FALL,LT HIP PAIN Source: patient, EMS Exam Limitations: no limitations History of Present Illness Date Seen by Provider: Mar 12, 2021 Time Seen by Provider: 15:30 Initial Comments 85-year-old female with past medical history of Parkinson Disease, hypertension, and seizures coming in via EMS from home after she was turning, tripped, and fell on her left side. She hit her head on the fridge with a laceration above her left eyebrow. She did not pass out and remembers all events. She is having moderate to severe left hip pain which is sharp, worse with movement, better with rest. EMS reports normal vitals. She says she has not had a seizure in years and her medication has been stable. She does not take any blood thinners. Otherwise denying any other acute complaints. Tetanus updated 2 years ago. Of note, the patient says if her hip is broken and she needs to be admitted to the hospital, she would prefer to go up to [facility] as that is her hospital. Allergies and Home Medications Allergies Coded Allergies: Sulfa (Sulfonamide Antibiotics) (Unverified Adverse Reaction, Unknown, 11/28/18) Patient Home Medication List Home Medication List Reviewed: Yes Amlodipine Besylate/Benazepril (Amlodipine-Benazepril 5-10 mg) 1 Each Capsule, (Reported) Entered as Reported by: ANGIE YOST on 11/28/181805 Carbidopa/Levodopa (Carbidopa-Levodopa 25-100 Tab) 1 Each Tablet, (Reported) Entered as Reported by: ANGIE YOST on 11/28/181805 Cyclobenzaprine HCl (Cyclobenzaprine HCl) 10 Mg Tablet, 5 MG PO Q8H PRN for SPASMS Prescribed by: KERVIN VICENTE on 05/15/19 163 Docusate Sodium (Docusate Sodium) 100 Mg Tablet, 100 MG PO UD Prescribed by: HAN FLORES on 11/28/181944 Fluoxetine HCl (Fluoxetine HCl) 20 Mg Tablet, (Reported) Entered as Reported by: ANGIE YOST on 11/28/181805 Ibuprofen (Ibuprofen) 600 Mg Tablet, 600 MG PO Q6H PRN for PAIN-MILD Prescribed by: KERVIN VICENTE on 05/15/19 163 Lamotrigine (Lamotrigine) 150 Mg Tablet, (Reported) Entered as Reported by: ANGIE YOST on 11/28/18 180 Methylprednisolone (Medrol Dose pack) 4 Mg Tab, 4 MG PO UD Prescribed by: KERVIN VICENTE on 05/15/19 1633 Oxycodone HCl/Acetaminophen (Percocet 5-325 mg Tablet) 1 Each Tablet, 1 TAB PO Q4H Prescribed by: TYSHAWN PENNINGTON on 06/04/20 1455 Polyethylene Glycol 3350 (Miralax) 17 Gm Powd.pack, 17 GM PO UD Prescribed by: HAN FLORES on 11/28/18 194 [lidoderm 5% patch] , 1 PATCH TD DAILY Prescribed by: KERVIN VICENTE on 05/15/19 1633 Review of Systems Review of Systems Constitutional: No chills, No fever Eyes: Denies Blurred Vision Respiratory: no symptoms reported Gastrointestinal: no symptoms reported Genitourinary: no symptoms reported Musculoskeletal: joint pain Skin: no symptoms reported Psychiatric/Neurological: No Symptoms Reported All Other Systems Reviewed Negative Unless Noted: Yes Past Lvlznvj-Dpaplv-Qperqb Hx Patient Social History Tobacco Use?: Yes Tobacco type used: Cigarettes Smoking Status: Light Tobacco Smoker Substance use?: No Alcohol Use?: Yes Alcohol Frequency: Couple times a week Immunizations Up To Date Tetanus Booster (TDap): Less than 5yrs First/Initial COVID19 Vaccinat: 06/27/20 Second COVID19 Vaccination Luis: 07/25/20 Seasonal Allergies Seasonal Allergies: No Past Medical History Surgeries: Yes (R TKR, Trigger finger, ) Gallbladder, Hysterectomy, Joint Replacement Respiratory: No Cardiac: Yes Hypertension Neurological: Yes Parkinson's Disease, Seizure Disorder Genitourinary: No Gastrointestinal: No Musculoskeletal: Yes Arthritis Endocrine: No HEENT: No Cancer: No Psychosocial: Yes Anxiety, Depression Integumentary: No Blood Disorders: No Physical Exam Vital Signs Vital Signs - First Documented 03/12/21 16:01 Temp 36.4 Pulse 72 Resp 20 B/P (MAP) 143/61 (88) Pulse Ox 100 O2 Delivery Room Air Capillary Refill : Height, Weight, BMI Height: 5'6.00" Weight: 140lbs. oz. 63.621180nt; 22.00 BMI Method:Stated General Appearance: WD/WN, no apparent distress HEENT: PERRL/EOMI, normal ENT inspection, pharynx normal Neck: non-tender, full range of motion, supple, normal inspection Cardiovascular: regular rate, rhythm, no edema, no murmur Respiratory: chest non-tender, lungs clear, normal breath sounds, no respiratory distress, no accessory muscle use Gastrointestinal: normal bowel sounds, non tender, soft; No distended, No guarding, No rebound Back: normal inspection, no CVA tenderness, no vertebral tenderness Extremities: no pedal edema, other (Left lower extremity shortened and externally rotated, normal distal pulses and sensation, normal dorsiflexion and plantarflexion, maximal pain over the hip, decreased range of motion of the left hip due to pain, no tenderness along the knee or spine) Neurologic/Psychiatric: no motor/sensory deficits, alert, normal mood/affect Skin: normal color, warm/dry, other (2 cm laceration above the left eyebrow that is hemostatic) Lymphatic: no adenopathy Schuyler Coma Score Best Eye Response: (4) Open Spontaneously Best Verbal Response: (5) Oriented Best Motor Response: (6) Obeys Commands Procedures/Interventions Wound Location: Scalp Other Wound Location left eyebrow Wound Length (cm): 2 Wound's Depth, Shape: superficial Irrigated w/ Saline (ccs): 400 Betadine Prep?: Yes Anesthesia: 1% Lidocaine Volume Anesthetic (ccs): 3 Suture: Plain (5-0 fast absorbing gut) Suture Size: 5-0 Number of Sutures: 6 Progress Tolerated procedure well with minimal bleeding or pain Progress/Results/Core Measures Results/Orders Lab Results Laboratory Tests Test 03/12/21 15:48 Range/Units White Blood Count 7.4 4.3-11.0 10^3/uL Red Blood Count 3.55 L 3.80-5.11 10^6/uL Hemoglobin 11.6 11.5-16.0 g/dL Hematocrit 34 L 35-52 % Mean Corpuscular Volume 96 80-99 fL Mean Corpuscular Hemoglobin 33 25-34 pg Mean Corpuscular Hemoglobin Concent 34 32-36 g/dL Red Cell Distribution Width 13.1 10.0-14.5 % Platelet Count 288 130-400 10^3/uL Mean Platelet Volume 9.1 9.0-12.2 fL Immature Granulocyte % (Auto) 1 % Neutrophils (%) (Auto) 49 42-75 % Lymphocytes (%) (Auto) 38 12-44 % Monocytes (%) (Auto) 9 0-12 % Eosinophils (%) (Auto) 2 0-10 % Basophils (%) (Auto) 1 0-10 % Neutrophils # (Auto) 3.7 1.8-7.8 X 10^3 Lymphocytes # (Auto) 2.8 1.0-4.0 X 10^3 Monocytes # (Auto) 0.7 0.0-1.0 X 10^3 Eosinophils # (Auto) 0.1 0.0-0.3 10^3/uL Basophils # (Auto) 0.1 0.0-0.1 10^3/uL Immature Granulocyte # (Auto) 0.1 0.0-0.1 10^3/uL Prothrombin Time 13.7 12.2-14.7 SEC INR Comment 1.0 0.8-1.4 Activated Partial Thromboplast Time 22 L 24-35 SEC Sodium Level 139 135-145 MMOL/L Potassium Level 4.1 3.6-5.0 MMOL/L Chloride Level 101 98-107 MMOL/L Carbon Dioxide Level 25 21-32 MMOL/L Anion Gap 13 5-14 MMOL/L Blood Urea Nitrogen 17 7-18 MG/DL Creatinine 0.84 0.60-1.30 MG/DL Estimat Glomerular Filtration Rate 65 BUN/Creatinine Ratio 20 Glucose Level 103 70-105 MG/DL Calcium Level 9.6 8.5-10.1 MG/DL My Orders Orders - MARIELA NASCIMENTO MD Ct Head/Cervical Spine Wo (03/12/21 15:37) Basic Metabolic Panel (03/12/21 15:37) Cbc With Automated Diff (03/12/21 15:37) Protime With Inr (03/12/21 15:37) Partial Thromboplastin Time (03/12/21 15:37) Pelvis With Left Hip 2-3 View (03/12/21 15:37) Fentanyl Inj (Sublimaze Injection) (03/12/21 15:45) Hydromorphone Injection (Dilaudid Inject (03/12/21 17:30) Medications Given in ED Current Medications Medications Dose Ordered Sig/Ever Route Start Time Stop Time Status Last Admin Dose Admin Fentanyl Citrate 50 mcg ONCE ONCE IVP 03/12/21 15:45 03/12/21 15:46 DC 03/12/21 15:50 50 MCG Vital Signs/I&O 03/12/21 16:01 Temp 36.4 Pulse 72 Resp 20 B/P (MAP) 143/61 (88) Pulse Ox 100 O2 Delivery Room Air Progress Progress Note : Progress Note 85-year-old female with above history coming in due to mechanical fall with left hip pain and a laceration above her left eyebrow. ABCs were intact and vitals were stable on presentation. Physical exam with the above-mentioned findings. An IV was already in place via EMS. They had given her 50 mcg of fentanyl and 4 mg of Zofran prior to arrival. She continued to have pain so she was given an additional dose of 50 mcg of fentanyl on arrival. CT head and cervical spine ordered given the fall and her age. X-ray of the pelvis and left hip ordered as well. XR on my interpretation with intertrochanteric fracture of the left femur that is displaced. CT head and c spine negative for acute findings. Labs unremarkable. Patient once again said she prefers the be transferred to [address] and then a different [facility] if they are not available. I contacted [facility] and they fortunately are able to accept the patient as an ER to ER transfer. She did require a dose of Dilaudid after the fentanyl for continued pain control. The laceration was closed with absorbable suture prior to leaving. Diagnostic Imaging Diagonstic Imaging: Xray (pelvis and left hip), CT (head and c spine) Comments [facility], [place] NAME: JOSEFA LIZARRAGA [facility] REC#: [id number] PT STATUS: REG ER : 1935 PHYSICIAN: MARIELA NASCIMENTO MD ADMIT DATE: 03/12/21/ER FS Signed Date of Exam:03/12/21 PELVIS WITH LEFT HIP 2-3 VIEW EXAM: Pelvis and left hip radiograph EXAM DATE: 03/12/2021 COMPARISON: None. HISTORY: Left leg pain and shortening after a fall. TECHNIQUE: Single view of the pelvis and 2 views of the left hip. FINDINGS: There is an acute, mildly displaced fracture of the intertrochanteric left femur. There appears to be at least 2.6 cm of proximal and 2.5 cm of medial displacement of the distal femur. Fracture is complex extending to the greater and lesser trochanters. There is bilateral left greater than right degenerative joint space narrowing and osteophytes. No other acute fracture is seen within the pelvis. Soft tissues are unremarkable. IMPRESSION: Complex intertrochanteric left femoral fracture. Dictated by: Dictated on workstation # [id number] Dict: 03/12/211616 Trans: 03/12/21 1633 [facility] [id number] Interpreted by: HUNG AKERS DO Electronically signed by: HUNG AKERS DO 03/12/211632 [facility], [place] NAME: JOSEFA LIZARRAGA [facility] REC#: [id number] PT STATUS: REG ER : 1935 PHYSICIAN: MARIELA NASCIMENTO MD ADMIT DATE: 03/12/21/ER FS Signed Date of Exam:03/12/21 CT HEAD/CERVICAL SPINE WO PROCEDURE: CT head and CT cervical spine without contrast. TECHNIQUE: Multiple contiguous axial images were obtained through the brain and cervical spine without the use of intravenous contrast. Sagittal and coronal reformations through the cervical spine were then performed. Auto Exposure Controls were utilized during the CT exam to meet ALARA standards for radiation dose reduction. INDICATION: Head injury, fall. COMPARISON: None available. FINDINGS: HEAD: No intracranial hyperdense hemorrhage or space-occupying mass. No hydrocephalus or midline shift. The wallace-white matter differentiation is preserved. Periventricular white matter hypoattenuation is most compatible with chronic microvascular ischemic disease. No acute skull fracture. The paranasal sinuses are clear. No fracture in the nasal bones. The orbits are normal in appearance. CERVICAL SPINE: No acute fracture within the cervical spine. There is mild degenerative straightening present but no traumatic subluxation. No high-grade spinal stenosis. Degenerative disc disease causes mild spinal stenosis at C5-C6 and C6-C7. Moderate hypertrophic degenerative changes around the atlantoaxial interval are also noted. Rim calcified left thyroid nodule. IMPRESSION: 1. No acute intracranial hemorrhage or skull fracture. 2. No acute fracture or traumatic malalignment in the cervical spine. Dictated by: Dictated on workstation # [id number] Dict: 03/12/211618 Trans: 03/12/21 1639 [id number] Interpreted by: TAYLOR MORTENSEN MD Electronically signed by: TAYLOR MORTENSEN MD 03/12/21 1639 Departure Impression Primary Impression: Intertrochanteric fracture of left femur Qualified Codes: S72.142A - Displaced intertrochanteric fracture of left femur, initial encounter for closed fracture Additional Impression: Forehead laceration Qualified Codes: S01.81XA - Laceration without foreign body of other part of head, initial encounter Disposition: 02 XFER SHT-TRM HOSP Condition: Stable Transfer Transfer Reason: Patient preference Time Spoke to Accepting Phy: 17:19 Transfer Progress Notes Called [facility] at 1710 and they would accept it, but they did not have beds. They called back 9 minutes later and said they would be able to accept her through the [place] location through the emergency department as a trauma patient. Transfer Facility: [facility] Method of Transfer: EMS Departure-Patient Inst. Referrals: GUZMAN CANTU MD (PCP/Family) Primary Care Physician MARIELA NASCIMENTO MD Mar 12, 2021 15:44
[2021-03-12] MEDS ORDERED: fentaNYL INJ 100 MCG/2 ML AMP IVP ONE (15:45)
[2021-03-12 15:56] LABS: BASOPHILS % (AUTO) 1 % (0-10); EOSINOPHILS % (AUTO) 2 % (0-10); HEMATOCRIT 34 % (35-52); HEMOGLOBIN 11.6 g/dL (11.5-16.0); LYMPHOCYTES # (AUTO) 2.8 X 10^3 (1.0-4.0); LYMPHOCYTES % (AUTO) 38 % (12-44); MEAN CORPUSCULAR HEMOGLOBIN 33 pg (25-34); MEAN CORPUSCULAR HGB CONC 34 g/dL (32-36); MEAN CORPUSCULAR VOLUME 96 fL (80-99); MEAN PLATELET VOLUME 9.1 fL (9.0-12.2); MONOCYTES % (AUTO) 9 % (0-12); NEUTROPHILS # (AUTO) 3.7 X 10^3 (1.8-7.8); NEUTROPHILS % (AUTO) 49 % (42-75); PLATELET COUNT 288 10^3/uL (130-400); WHITE BLOOD COUNT 7.4 10^3/uL (4.3-11.0)
[2021-03-12 15:57] LABS: BASOPHILS # (AUTO) 0.1 10^3/uL (0.0-0.1); EOSINOPHILS # (AUTO) 0.1 10^3/uL (0.0-0.3); MONOCYTES # (AUTO) 0.7 X 10^3 (0.0-1.0)
[2021-03-12 16:03] LABS: PROTHROMBIN TIME PATIENT 13.7 SEC (12.2-14.7)
[2021-03-12 16:13] LABS: CALCIUM 9.6 MG/DL (8.5-10.1); CREATININE SERUM 0.84 MG/DL (0.60-1.30); POTASSIUM 4.1 MMOL/L (3.6-5.0)
--- NOTE | 2021-03-12 16:21 | Diagnostic Imaging Report ---
EXAM: Pelvis and left hip radiograph EXAM DATE: 03/12/2021 COMPARISON: None. HISTORY: Left leg pain and shortening after a fall. TECHNIQUE: Single view of the pelvis and 2 views of the left hip. FINDINGS: There is an acute, mildly displaced fracture of the intertrochanteric left femur. There appears to be at least 2.6 cm of proximal and 2.5 cm of medial displacement of the distal femur. Fracture is complex extending to the greater and lesser trochanters. There is bilateral left greater than right degenerative joint space narrowing and osteophytes. No other acute fracture is seen within the pelvis. Soft tissues are unremarkable. IMPRESSION: Complex intertrochanteric left femoral fracture. Dictated by: Dictated on workstation # [id number]
--- NOTE | 2021-03-12 16:24 | Diagnostic Imaging Report ---
PROCEDURE: CT head and CT cervical spine without contrast. TECHNIQUE: Multiple contiguous axial images were obtained through the brain and cervical spine without the use of intravenous contrast. Sagittal and coronal reformations through the cervical spine were then performed. Auto Exposure Controls were utilized during the CT exam to meet ALARA standards for radiation dose reduction. INDICATION: Head injury, fall. COMPARISON: None available. FINDINGS: HEAD: No intracranial hyperdense hemorrhage or space-occupying mass. No hydrocephalus or midline shift. The wallace-white matter differentiation is preserved. Periventricular white matter hypoattenuation is most compatible with chronic microvascular ischemic disease. No acute skull fracture. The paranasal sinuses are clear. No fracture in the nasal bones. The orbits are normal in appearance. CERVICAL SPINE: No acute fracture within the cervical spine. There is mild degenerative straightening present but no traumatic subluxation. No high-grade spinal stenosis. Degenerative disc disease causes mild spinal stenosis at C5-C6 and C6-C7. Moderate hypertrophic degenerative changes around the atlantoaxial interval are also noted. Rim calcified left thyroid nodule. IMPRESSION: 1. No acute intracranial hemorrhage or skull fracture. 2. No acute fracture or traumatic malalignment in the cervical spine. Dictated by: Dictated on workstation # [id number]
[2021-03-12] MEDS ORDERED: HYDROmorphone 2 MG/ML VIAL (DILAUDID) IV ONE (17:30)
[2021-03-12 17:50] VITALS: BP 149/72
== END 2021-03-12 19:10 | disposition short-term general hospital (02) ==
LOC: EDUNIT# 15:28 → ER FS 15:29
DX: S72.142A Displaced intertrochanteric fracture of left femur, initial encounter for closed fracture (principal); S01.81XA Laceration without foreign body of other part of head, initial encounter; I10 Essential (primary) hypertension; F41.9 Anxiety disorder, unspecified; F32.9 Major depressive disorder, single episode, unspecified; G20 Parkinson's disease; G40.909 Epilepsy, unspecified, not intractable, without status epilepticus; F17.210 Nicotine dependence, cigarettes, uncomplicated; Z23 Encounter for immunization; Z79.52 Long term (current) use of systemic steroids; Z79.899 Other long term (current) drug therapy; W01.198A Fall on same level from slipping, tripping and stumbling with subsequent striking against other object, initial encounter; Y93.02 Activity, running
CPT/HCPCS: 12051; 36415; 70450; 72125; 73502; 80048; 85025; 85610; 85730

== ENCOUNTER → 2021-08-27 | Outpatient (CLI) | payer MEDICARE ==
--- NOTE | 2021-08-27 10:50 | Diagnostic Imaging Report ---
PROCEDURE: MRI lumbar spine. TECHNIQUE: Multiplanar, multisequence MRI of the lumbar spine was performed without contrast. INDICATION: Fall. Lower back pain. Bilateral leg pain. COMPARISON: None. FINDINGS: For the purposes of this exam, last well-formed disc space is denoted the L5-S1 level. Evaluation of the static alignment shows slight grade 1 anterolisthesis of L4-L5. There is no evidence of jumped facets. Vertebral body heights are maintained. There is no acute fracture. Evaluation of the marrow signal demonstrates Modic type I change involving the adjacent endplates at the T10-T11 level. There is also multilevel intervertebral disc height loss with multilevel anterior and posterior disc bulging. Visualized portions of the distal cord show a small syrinx. This measures approximately 2 mm in diameter. Conus terminates at approximately the L1-L2 level. No abnormal intrathecal filling defects are seen. Pre and paravertebral soft tissue structures are unremarkable. Axial images demonstrate the following: T10-T11: There is asymmetric right lateral endplate osteophyte formation as well as broad-based posterior disc bulge. As a result, there is mild narrowing of the spinal canal and left neural foramen. There is also moderate stenosis on the right. T11-T12: There is broad-based posterior disc bulge with bilateral ligamentum flavum laxity and facet arthropathy. As a result, there is mild spinal canal and bilateral neural foraminal stenosis. T12-L1: There is broad-based posterior disc bulge with bilateral ligamentum flavum laxity and facet arthropathy. As a result, there is mild narrowing of the spinal canal and left neural foramen. There is also moderate stenosis on the right. L1-L2: There is broad-based posterior disc bulge with bilateral ligamentum flavum laxity and facet arthropathy. As a result, there is mild narrowing of the spinal canal and bilateral neural foramen. L2-L3: There is broad-based posterior disc bulge with bilateral ligamentum flavum laxity and facet arthropathy. As a result, there is zext-bf-aoseihxw narrowing of the spinal canal and mild narrowing of the bilateral neural foramen. L3-L4: There is broad-based posterior disc bulge with bilateral ligamentum flavum laxity and facet arthropathy. As a result, there is gfhw-ur-akmdpgjm narrowing of the spinal canal and mild narrowing of the bilateral neural foramen. L4-L5: There is broad-based posterior disc bulge with bilateral ligamentum flavum laxity and facet arthropathy. As a result, there is moderate stenosis of the spinal canal and oxvw-jr-uibtanwy stenosis on the left. There is also mild narrowing on the right. L5-S1: There is no large disc bulge or focal protrusion. There is bilateral facet arthropathy, but no significant spinal canal stenosis. IMPRESSION: 1. Multilevel degenerative changes of the lumbar spine as described above. 2. No acute fracture or dislocation. Dictated by: Dictated on workstation # [id number]
== END ==
LOC: RAD 08:00
PROVIDERS: ATTEND Family Medicine
DX: M54.9 Dorsalgia, unspecified (principal)
CPT/HCPCS: 72148

== ENCOUNTER 2022-05-18 13:06 | Emergency (ER) | payer MEDICARE ==
[~2022-05-18 13:06] MED LIST changes: -CARB1TAB19; +CARB1TAB32
--- NOTE | 2022-05-18 13:14 | ED Head Injury ---
General Chief Complaint: Trauma-Non Activation Stated Complaint: FALL; HEAD INJ History of Present Illness Date Seen by Provider: May 18, 2022 Time Seen by Provider: 13:14 Initial Comments 86-year-old female presents following a fall. Patient reports that around 2 AM she tripped on her walker in the kitchen and fell. She thinks maybe she hit her sink but is not sure. She does have a hematoma a laceration on her right top of her scalp along with a small abrasion/laceration on her posterior scalp. She is not sure if she lost consciousness but thinks maybe she did. She is not having any symptoms outside of some discomfort from the laceration at this time. No nausea vomiting or confusion reported. Allergies and Home Medications Allergies Coded Allergies: Sulfa (Sulfonamide Antibiotics) (Unverified Adverse Reaction, Unknown, ) Patient Home Medication List Home Medication List Reviewed: Yes Amlodipine Besylate/Benazepril (Amlodipine-Benazepril 5-10 mg) 1 Each Capsule, (Reported) Entered as Reported by: ANGIE YOST on 11/28/18 180 Carbidopa/Levodopa (Carbidopa-Levodopa 25-100 Tab) 1 Each Tablet, (Reported) Entered as Reported by: ANGIE YOST on 11/28/18 180 Cyclobenzaprine HCl (Cyclobenzaprine HCl) 10 Mg Tablet, 5 MG PO Q8H PRN for SPASMS Prescribed by: KERVIN VICENTE on 05/15/19 163 Docusate Sodium (Docusate Sodium) 100 Mg Tablet, 100 MG PO UD Prescribed by: HAN FLORES on 11/28/18 194 Fluoxetine HCl (Fluoxetine HCl) 20 Mg Tablet, (Reported) Entered as Reported by: ANGIE YOST on 11/28/18 180 Ibuprofen (Ibuprofen) 600 Mg Tablet, 600 MG PO Q6H PRN for PAIN-MILD Prescribed by: KERVIN VICENTE on 05/15/19 163 Lamotrigine (Lamotrigine) 150 Mg Tablet, (Reported) Entered as Reported by: ANGIE YOST on 11/28/18 180 Methylprednisolone (Medrol Dose pack) 4 Mg Tab, 4 MG PO UD Prescribed by: KERVIN VICENTE on 05/15/19 1633 Oxycodone HCl/Acetaminophen (Percocet 5-325 mg Tablet) 1 Each Tablet, 1 TAB PO Q4H Prescribed by: TYSHAWN PENNINGTON on 06/04/20 1455 Polyethylene Glycol 3350 (Miralax) 17 Gm Powd.pack, 17 GM PO UD Prescribed by: HAN FLORES on 11/28/18 194 [lidoderm 5% patch] , 1 PATCH TD DAILY Prescribed by: KERVIN VICENTE on 05/15/19 1633 Review of Systems Review of Systems Constitutional: No chills, No fever Eyes: No Symptoms Reported Ears, Nose, Mouth, Throat: no symptoms reported Respiratory: no symptoms reported Cardiovascular: no symptoms reported Gastrointestinal: no symptoms reported Genitourinary: no symptoms reported Musculoskeletal: see HPI Skin: see HPI Psychiatric/Neurological: No Symptoms Reported Endocrine: No Symptoms Reported Past Ktxxbkv-Pasezq-Hyeftb Hx Immunizations Up To Date Tetanus Booster (TDap): Less than 5yrs First/Initial COVID19 Vaccinat: 06/27/20 Second COVID19 Vaccination Luis: 07/25/20 Seasonal Allergies Seasonal Allergies: No Past Medical History Surgeries: Yes (R TKR, Trigger finger, ) Gallbladder, Hysterectomy, Joint Replacement Respiratory: No Cardiac: Yes Hypertension Neurological: Yes Parkinson's Disease, Seizure Disorder Genitourinary: No Gastrointestinal: No Musculoskeletal: Yes Arthritis Endocrine: No HEENT: No Cancer: No Psychosocial: Yes Anxiety, Depression Integumentary: No Blood Disorders: No Physical Exam Vital Signs Vital Signs - First Documented 05/18/22 13:13 Temp 36.4 Pulse 99 Resp 16 B/P (MAP) 128/61 (83) Pulse Ox 97 O2 Delivery Room Air Capillary Refill : Height, Weight, BMI Height: 5'6.00" Weight: 140lbs. oz. 63.096779fv; 22.00 BMI Method:Stated General Appearance: WD/WN, no apparent distress HEENT: other (Hematoma scalp with laceration) Neck: non-tender, full range of motion, supple Cardiovascular: normal peripheral pulses, regular rate, rhythm Respiratory: lungs clear, normal breath sounds Gastrointestinal: non tender, soft Extremities: normal range of motion, non-tender, normal inspection Psychiatric: alert, oriented x 3 Crainal Nerves: normal hearing, normal speech, PERRL Coordination/Gait: normal gait Skin: other (5 cm irregular shaped laceration right scalp) Schuyler Coma Score Best Eye Response: (4) Open Spontaneously Best Verbal Response: (5) Oriented Best Motor Response: (6) Obeys Commands Procedures/Interventions Wound Location: Scalp Wound Length (cm): 5 Wound's Depth, Shape: irregular Wound Explored: clean Staple Repair: Stapler 35W Suture Size: 5-0 Number of Sutures: 5 Progress Patient tolerated well with no immediate complication Progress/Results/Core Measures Results/Orders My Orders Orders - HUGH JIMENEZ DO Ct Head/Cervical Spine Wo (05/18/22 13:18) Vital Signs/I&O 05/18/22 13:13 Temp 36.4 Pulse 99 Resp 16 B/P (MAP) 128/61 (83) Pulse Ox 97 O2 Delivery Room Air Progress Progress Note : Progress Note Patient with an approximate 5 cm laceration that was irregular and closed nicely with becca. Patient CT head neck were reviewed. There shows no acute findings. Patient with mild head injury and laceration repair. She should return in 10 days to have becca removed. She is stable and discharged Diagnostic Imaging Diagonstic Imaging: CT Plain Films/CT/US/NM/MRI: head Comments Date of Exam:05/18/22 CT HEAD/CERVICAL SPINE WO PROCEDURE: CT head and CT cervical spine without contrast. TECHNIQUE: Multiple contiguous axial images were obtained through the brain and cervical spine without the use of intravenous contrast. Sagittal and coronal reformations through the cervical spine were then performed. Auto Exposure Controls were utilized during the CT exam to meet ALARA standards for radiation dose reduction. INDICATION: Fall with laceration to the head. COMPARISON: Correlation is made with prior CT from 03/12/2021. FINDINGS: CT HEAD: There is a right frontal scalp hematoma. Ventricles and sulci are stable in appearance. There is moderate periventricular low attenuation, consistent with chronic microvascular ischemia. No sulcal effacement or midline shift is identified. No acute intra-axial or extra-axial hemorrhage is detected. Cisterns are patent. Visualized paranasal sinuses are clear. IMPRESSION: 1. Right frontal scalp hematoma. 2. Changes of chronic microvascular ischemia. No acute intracranial process is detected. CT CERVICAL SPINE: There is minimal anterolisthesis of C3 on C4 and C4 on C5. There is multilevel degenerative disc and facet disease. There is variable disc space narrowing and marginal spurring noted. No fractures are identified. Prevertebral tissues are within normal limits. The odontoid is intact. IMPRESSION: Cervical spondylosis. No acute bony abnormality is detected. Reviewed: Reviewed by Me, Reviewed/Discussed Departure Impression Primary Impression: Laceration of scalp without complication Qualified Codes: S01.01XA - Laceration without foreign body of scalp, initial encounter Additional Impression: Minor closed head injury Disposition: HOME, SELF-CARE Condition: Stable Departure-Patient Inst. Referrals: GUZMAN CANTU MD (PCP) Primary Care Physician Patient Instructions: Laceration Repair With [facility] [facility], Minor Head Injury, Adult ED Add. Discharge Instructions: Tylenol or ibuprofen as needed for discomfort. Please return in approximately 10 days to have your becca removed. Follow-up with her primary care provider as needed All discharge instructions reviewed with patient and/or family. Voiced understanding. HUGH JIMENEZ DO May 18, 2022 13:14
--- NOTE | 2022-05-18 14:32 | Diagnostic Imaging Report ---
PROCEDURE: CT head and CT cervical spine without contrast. TECHNIQUE: Multiple contiguous axial images were obtained through the brain and cervical spine without the use of intravenous contrast. Sagittal and coronal reformations through the cervical spine were then performed. Auto Exposure Controls were utilized during the CT exam to meet ALARA standards for radiation dose reduction. INDICATION: Fall with laceration to the head. COMPARISON: Correlation is made with prior CT from 03/12/2021. FINDINGS: CT HEAD: There is a right frontal scalp hematoma. Ventricles and sulci are stable in appearance. There is moderate periventricular low attenuation, consistent with chronic microvascular ischemia. No sulcal effacement or midline shift is identified. No acute intra-axial or extra-axial hemorrhage is detected. Cisterns are patent. Visualized paranasal sinuses are clear. IMPRESSION: 1. Right frontal scalp hematoma. 2. Changes of chronic microvascular ischemia. No acute intracranial process is detected. CT CERVICAL SPINE: There is minimal anterolisthesis of C3 on C4 and C4 on C5. There is multilevel degenerative disc and facet disease. There is variable disc space narrowing and marginal spurring noted. No fractures are identified. Prevertebral tissues are within normal limits. The odontoid is intact. IMPRESSION: Cervical spondylosis. No acute bony abnormality is detected. Dictated by: Dictated on workstation # [id number]
[2022-05-18 14:46] VITALS: BP 128/61
== END 2022-05-18 14:46 | disposition home or self-care (01) ==
LOC: EDUNIT# 13:06 → ER FS 13:07
DX: S09.90XA Unspecified injury of head, initial encounter (principal); S01.01XA Laceration without foreign body of scalp, initial encounter; W01.0XXA Fall on same level from slipping, tripping and stumbling without subsequent striking against object, initial encounter; Y92.000 Kitchen of unspecified non-institutional (private) residence as the place of occurrence of the external cause
CPT/HCPCS: 70450; 72125